=== PATIENT | female | born 1990 | race Caucasian/White ===

== ENCOUNTER → 2017-04-12 | Outpatient (CLI) | payer BC ==
[~2017-04-12] VITALS: Ht 166.4 cm; Wt 47.7 kg
[2017-04-12 12:52] VITALS: BP 107/74; PULSE 128; Ht 166.4 cm; Wt 47.7 kg
== END | disposition home or self-care (01) ==
LOC: C.NEUR 12:30
PROVIDERS: ATTEND Internal Medicine Pulmonary Disease
DX: G47.19 Other hypersomnia (principal)

== ENCOUNTER → 2017-05-24 | Outpatient (CLI) | payer BC ==
[~2017-05-24] VITALS: Ht 166.4 cm; Wt 47.8 kg
[2017-05-24 12:34] VITALS: BP 111/63; PULSE 71; Ht 166.4 cm; Wt 47.8 kg
== END | disposition home or self-care (01) ==
LOC: C.NEUR 12:17
PROVIDERS: ATTEND Internal Medicine Pulmonary Disease
DX: G47.19 Other hypersomnia (principal)

== ENCOUNTER → 2017-07-13 | Outpatient (CLI) | payer BC ==
--- NOTE | 2017-07-13 11:55 | DIAGNOSTIC IMAGING REPORT ---
CAROTID DOPPLER NECK ART HISTORY: Mental status change MURMUR IN NECK COMPARISON: None. TECHNIQUE: Real-time, grayscale, and color Doppler sonography of the carotid arteries was performed. Imaging reviewed in the transverse and longitudinal planes. All measurements were calculated based on NASCET criteria. FINDINGS: Antegrade flow is seen in the bilateral vertebral arteries. The brachial pressures are hemodynamically similar. No significant plaque formation The peak systolic velocity within the right ICA is 139. The right systolic ratio is 1.0. The peak systolic velocity within the left ICA is 125. The left systolic ratio is 0.9. IMPRESSION: No hemodynamically significant stenosis seen within the carotid arteries. Negative study The above report was generated using voice recognition software. It may contain grammatical, syntax or spelling errors. Electronically signed by: Israel Wheat M.D. 07/13/2017 11:54 AM Dictated Date/Time: 07/13/2017 11:53 AM
== END | disposition home or self-care (01) ==
LOC: C.ULTR 11:07
PROVIDERS: ATTEND Family Medicine
DX: R09.89 Other specified symptoms and signs involving the circulatory and respiratory systems (principal)

== ENCOUNTER → 2017-07-27 | Outpatient (CLI) | payer BC | END | disposition home or self-care (01) | LOC: C.PAPS 11:08 | PROVIDERS: ATTEND Family Medicine | DX: Z12.72 Encounter for screening for malignant neoplasm of vagina (principal) ==

== ENCOUNTER → 2017-08-19 | Outpatient (CLI) | payer BC ==
--- NOTE | 2017-09-02 06:37 | CODING QUERY NO DIAGNOSIS ---
TREATMENT RENDERED WITHOUT A DIAGNOSIS : 92 To promote full compliance with coding requirements relating to patient care, physician participation is requested in all cases of biostatistics professor uncertainty. Please assist us with providing a diagnosis/symptom for the test(s) below: A diagnosis/symptom was not documented on your Order. A valid diagnosis/symptom is required to bill all insurances. Please remember that we are unable to code a diagnosis of rule out, probable, possible, questionable, or suspected. Tests that require a diagnosis: DOS: 08/19/17 * ECG ROUTINE DIAGNOSIS: Provider Signature: Date: Thank you Casie [facility] Information Management Once completed, please kindly fax back to [phone] For questions please call [phone]
== END | disposition home or self-care (01) ==
LOC: C.CPL 11:22
PROVIDERS: ATTEND Family Medicine
DX: R42 Dizziness and giddiness (principal)

== ENCOUNTER → 2017-09-02 | Outpatient (CLI) | payer BC ==
--- NOTE | 2017-09-02 16:01 | ECHOCARDIOGRAM REPORT ---
*NOTICE TO RECEIVING [employer] This information is strictly Confidential and protected under [place] law. [place] law prohibits you from making any further disclosure of this information unless further disclosure is expressly permitted by the written consent of the person to whom it pertains or is authorized by law. A general authorization for the release of medical or other information is not sufficient for this purpose. Hospital accepts no responsibility if the information is made available to any other person, INCLUDING THE PATIENT. Interpretation Summary * Name: NEWTON MIRMAONTES Study Date: 09/02/2017 01:32 PM BP: 111/52 mmHg * Patient Location: [facility] HR: 70 * : 1990 (M/d/yyyy) Gender: Female Height: 65 in * Age: 26 yrs Ethnicity: CA Weight: 102 lb * Ordering Physician: Carrie Taylor * Referring Physician: Carrie Taylor D.O. * Performed By: Kristin San RDCS * * Reason For Study: DIZZINESS, ABNL EKG * BSA: 1.5 m2 * -- Conclusions -- * 1. Normal LV size. Normal LV wall thickness. * 2. Normal LV systolic function. LVEF 55-60 %. No regional wall motion abnormalities. * 3. Normal RV size and function. * 4. No significant valvular pathology. * 5. Normal estimated PA and RA pressures. * 6. No prior studies for comparison. Procedure Details * A complete two-dimensional transthoracic echocardiogram was performed (2D, M-mode, Doppler and color flow Doppler). Left Ventricle * The left ventricle is grossly normal size. * There is normal left ventricular wall thickness. * Ejection Fraction = 55-60%. Right Ventricle * The right ventricle is grossly normal size. * The right ventricular systolic function is normal as assessed by tricuspid annular plane systolic excursion (TAPSE) (normal >1.5 cm). Atria * The left atrial size is normal. * Right atrial size is normal. * No ASD detected; PFO is not assessed. Mitral Valve * The mitral valve leaflets appear normal. There is no evidence of stenosis, fluttering, or prolapse. * There is no mitral valve stenosis. * Significant mitral regurgitation is absent. Tricuspid Valve * Significant tricuspid regurgitation is absent. Aortic Valve * The aortic valve opens well. * No hemodynamically significant valvular aortic stenosis. * There is no significant aortic regurgitation. Pulmonic Valve * The pulmonary valve is inadequately visualized, but the Doppler data is adequate for interpretation. * Pulmonic stenosis is absent. * There is no significant pulmonary regurgitation. Great Vessels * The aortic root and proximal ascending aorta are normal sized. Pericardium/Pleural * There is no pericardial effusion. Great Vessels * Normal inferior vena cava size and collapsability with sniff indicates a normal right atrial pressure of 3 mmHg MMode 2D Measurements and Calculations IVSd 0.51 cm IVSs 0.68 cm LVIDd 3.7 cm LVIDs 2.4 cm LVPWd 0.86 cm LVPWs 1.2 cm IVS/LVPW 0.59 FS 35.7 % EDV(Teich) 57.7 ml ESV(Teich) 19.6 ml EF(Teich) 66.1 % EDV(cubed) 50.2 ml ESV(cubed) 13.3 ml EF(cubed) 73.4 % % IVS thick 31.8 % % LVPW thick 44.5 % LV mass(C)d 67.0 grams LV mass(C)dI 45.1 grams/m\S\2 LV mass(C)s 55.5 grams LV mass(C)sI 37.4 grams/m\S\2 SV(Teich) 38.1 ml SI(Teich) 25.7 ml/m\S\2 SV(cubed) 36.9 ml SI(cubed) 24.8 ml/m\S\2 Ao root diam 3.0 cm Ao root area 7.3 cm\S\2 LA dimension 2.5 cm LA/Ao 0.84 LVAd ap4 24.8 cm\S\2 LVLd ap4 7.9 cm EDV(MOD-sp4) 63.6 ml EDV(sp4-el) 65.9 ml LVAs ap4 13.5 cm\S\2 LVLs ap4 6.6 cm ESV(MOD-sp4) 23.2 ml ESV(sp4-el) 23.7 ml EF(MOD-sp4) 63.6 % EF(sp4-el) 64.1 % LVAd ap2 25.7 cm\S\2 LVLd ap2 8.1 cm EDV(MOD-sp2) 67.8 ml EDV(sp2-el) 69.5 ml LVAs ap2 13.5 cm\S\2 LVLs ap2 6.2 cm ESV(MOD-sp2) 24.1 ml ESV(sp2-el) 25.0 ml EF(MOD-sp2) 64.4 % EF(sp2-el) 64.0 % LVLd %diff 2.4 % EDV(MOD-bp) 67.1 ml LVLs %diff -5.59 % ESV(MOD-bp) 23.4 ml EF(MOD-bp) 65.1 % SV(MOD-sp4) 40.4 ml SI(MOD-sp4) 27.2 ml/m\S\2 SV(MOD-sp2) 43.6 ml SI(MOD-sp2) 29.4 ml/m\S\2 SV(MOD-bp) 43.7 ml SI(MOD-bp) 29.4 ml/m\S\2 SV(sp4-el) 42.2 ml SI(sp4-el) 28.4 ml/m\S\2 SV(sp2-el) 44.5 ml SI(sp2-el) 30.0 ml/m\S\2 Doppler Measurements and Calculations MV E max galo 111.1 cm/sec MV A max galo 58.7 cm/sec MV E/A 1.9 MV dec time 0.24 sec Ao V2 max 119.3 cm/sec Ao max PG 5.7 mmHg Ao max PG (full) 2.5 mmHg LV V1 max PG 3.2 mmHg LV V1 max 88.8 cm/sec
== END | disposition home or self-care (01) ==
LOC: C.CPL 13:17
PROVIDERS: ATTEND Family Medicine
DX: R42 Dizziness and giddiness (principal); R94.31 Abnormal electrocardiogram [ECG] [EKG]; R07.9 Chest pain, unspecified